=== PATIENT | male | born 1985 | race Two or more races ===

== ENCOUNTER 2019-01-24 01:47 | Emergency (ER) | payer OTHER ==
[2019-01-24] MEDS ORDERED: AMLODIPINE BESYLATE 10 MG TABLET PO ONE (04:06)
[2019-01-24] MEDS ORDERED: HYDROCHLOROTHIAZIDE 25 MG TABLET PO ONE (04:06)
[2019-01-24] MEDS ORDERED: LORAZEPAM INJ 2 MG/1 ML VIAL IV ONE (04:06)
[2019-01-24] MEDS ORDERED: LOSARTAN POTASSIUM 50 MG TABLET PO ONE (04:06)
[2019-01-24] MEDS ORDERED: METFORMIN HCL 500 MG TABLET PO ONE (04:07)
[2019-01-24] MEDS ORDERED: HYDRALAZINE HCL INJ/PF 20 MG/1 ML SDV IV ONE (04:07)
[2019-01-24 04:49] LABS: ABSOLUTE BASOPHILS # (AUTO) 0.1 10^3/uL (0.0-0.2); ABSOLUTE EOSINOPHILS # (AUTO) 0.2 10^3/uL (0.0-0.6); ABSOLUTE LYMPHOCYTES (AUTO) 3.1 10^3/uL (0.5-4.7); ABSOLUTE MONOCYTES (AUTO) 0.6 10^3/uL (0.1-1.4); ABSOLUTE NEUT (AUTO) 5.6 10^3/uL (1.7-8.2); BASOPHILS % (AUTO) 0.9 % (0-2); HEMATOCRIT 46.6 % (37.9-51.0); HEMOGLOBIN 15.7 g/dL (13.5-17.0); LYMPHOCYTES % (AUTO) 31.8 % (13-45); MEAN CORPUSCULAR HEMOGLOBIN 28.7 pg (27.0-33.4); MEAN CORPUSCULAR HGB CONC 33.7 g/dL (32.0-36.0); MEAN CORPUSCULAR VOLUME 85 fl (80-97); MONOCYTES % (AUTO) 6.7 % (3-13); PLATELET COUNT 377 10^3/uL (150-450); RED BLOOD COUNT 5.47 10^6/uL (4.35-5.55); RED CELL DISTRIBUTION WIDTH 13.6 % (11.5-14.0); SEGMENTED NEUTROPHILS % (AUTO) 58.6 % (42-78); TOTAL CELLS COUNTED % (AUTO) 100 %; WHITE BLOOD COUNT 9.6 10^3/uL (4.0-10.5)
[2019-01-24 05:03] LABS: ALBUMIN 4.3 g/dL (3.5-5.0); ALKALINE PHOSPHATASE 98 U/L (38-126); ANION GAP 14 (5-19); ASPARTATE AMINO TRANSFERASE 29 U/L (17-59); BILIRUBIN,DIRECT 0.2 mg/dL (0.0-0.4); BILIRUBIN,TOTAL 0.5 mg/dL (0.2-1.3); BLOOD UREA NITROGEN 14 mg/dL (7-20); CALCIUM 9.3 mg/dL (8.4-10.2); CARBON DIOXIDE 22 mmol/L (22-30); CHLORIDE 104 mmol/L (98-107); GLUCOSE 237 mg/dL (75-110); POTASSIUM 4.3 mmol/L (3.6-5.0); TOTAL PROTEIN 7.5 g/dL (6.3-8.2)
[2019-01-24 05:13] LABS: NT PRO BNP 25 pg/mL (<125)
[2019-01-24 05:15] LABS: TROPONIN I < 0.012 ng/mL
--- NOTE | 2019-01-24 05:18 | RADIOLOGY REPORT (SQ) ---
EXAM DESCRIPTION: XR CHEST 2 VIEWS COMPLETED DATE/TME: 01/24/2019 04:05 CLINICAL HISTORY: 33 years Male, dyspnea, hypertension COMPARISON: None. NUMBER OF VIEWS/TECHNIQUE: 2, Frontal, Lateral FINDINGS: Increased lung volume, clear parenchyma, normal cardiac silhouette, and intact bony thorax. IMPRESSION: No acute cardiopulmonary findings.
--- NOTE | 2019-01-24 06:03 | ER Document Report ---
ED General - General Chief Complaint: High Blood Pressure Stated Complaint: HIGH BLOOD PRESSURE/HEART FLUTTERING Time Seen by Provider: 01/24/19 03:51 Mode of Arrival: Ambulatory Information source: Patient, Friend TRAVEL OUTSIDE OF THE [place] IN LAST 30 DAYS: No - HPI Notes: Patient is a 33-year-old male history of hypertension and type 2 diabetes presen ts to the emergency department with report that he stopped taking his amlodipine and losartan and hydrochlorothiazide 2 months ago when he ran out. He also has not been taking his Humalog insulin and metformin for the last month. The patient states he has lost weight and has been trying to watch his diet and has been exercising better. The patient was driving up from [place] and stated he felt his heart rate going fast and felt somewhat anxious. The patient states he feels better after arrival. He denies having chest pain on my questioning. Patient reports no nausea or vomiting or significant dyspnea. No cough or congestion. No fever or chills or constipation or diarrhea or dysuria. The patient denies any illegal drug use. Patient drinks rarely. He works in construction. Patient reports that approximately 1 year ago he had a CT angiogram which showed no vascular calcifications or other disease. Patient denies any headache. He reports no numbness or paresthesia or significant vision changes. - Related Data Allergies/Adverse Reactions: No Known Allergies Allergy (Unverified 01/24/19 04:16) Home Medications: losartan- stopped one month ago after seeing recall Past Medical History - General Information source: Patient - Social History Smoking Status: Never Smoker Chew tobacco use (# tins/day): No Frequency of alcohol use: None Drug Abuse: None Lives with: Friend Family History: DM Patient has suicidal ideation: No Patient has homicidal ideation: No - Past Medical History Cardiac Medical History: Reports: Hx Hypertension Endocrine Medical History: Reports: Hx Diabetes Mellitus Type 2 Review of Systems - Review of Systems -: Yes All other systems reviewed and negative Physical Exam - Vital signs Vitals: Temp Pulse Resp BP Pulse Ox 97.9 F 84 16 189/132 H 99 01/24/19 02:03 01/24/19 02:03 01/24/19 02:03 01/24/19 02:03 01/24/19 02:03 - Notes Notes: PHYSICAL EXAMINATION: GENERAL: Well-appearing, well-nourished and in no acute distress. HEAD: Atraumatic, normocephalic. EYES: Pupils equal round and reactive to light, extraocular movements intact, sclera anicteric, conjunctiva are mildly injected bilaterally.. ENT: Nares patent, oropharynx clear without exudates. Moist mucous membranes. NECK: Normal range of motion, supple without lymphadenopathy LUNGS: Breath sounds clear to auscultation bilaterally and equal. No wheezes rales or rhonchi. HEART: Regular rate and rhythm without murmurs ABDOMEN: Soft, nontender, nondistended abdomen. No guarding, no rebound. No masses appreciated. Musculoskeletal: Normal range of motion, no pitting or edema. No cyanosis. NEUROLOGICAL: Cranial nerves grossly intact. Normal speech, normal gait. Normal sensory, motor exams. No cerebellar ataxia. PSYCH: Mildly anxious, normal affect. SKIN: Warm, Dry, normal turgor, no rashes or lesions noted. Course - Re-evaluation Re-evalutation: 01/24/19 05:55 Patient was given Ativan and hydralazine as well as the patient's regular doses of amlodipine, losartan, hydrochlorothiazide. Blood sugar was only mildly elevated, but did not require additional insulin. Patient was given his usual metformin dose. Patient was counseled at length about the need to follow-up with his regular practitioner and the need to be compliant with his medications. Given the only mild hyperglycemia noted, I will not restart his Humalog given that he has been watching his diet and has lost proximally 40 pounds. The patient was instructed to check and record his blood sugars and blood pressure at home to discuss with his regular doctor also. No evidence for ischemia or endorgan dysfunction or electrolyte imbalance or anemia or acute NE or CHF or pneumonia.. 01/24/19 06:04 Repeat blood pressure 152/89 prior to discharge. 01/24/19 06:12 - Vital Signs Vital signs: Temp Pulse Resp BP Pulse Ox 97.9 F 84 12 207/118 H 98 01/24/19 02:03 01/24/19 02:03 01/24/19 04:44 01/24/19 04:44 01/24/19 04:44 - Laboratory Result Diagrams: 01/24/19 04:20 01/24/19 04:20 Laboratory results interpreted by me: 10/24/19 10/24/19 03:54 04:20 Glucose 237 H POC Glucose 242 H Discharge - Discharge Clinical Impression: Hyperglycemia, Medical non-compliance Hypertension Qualifiers: Hypertension type: essential hypertension Qualified Code(s): I10 - Essential (primary) hypertension Condition: Stable Disposition: HOME, SELF-CARE Instructions: Diabetes ([facility]), High Blood Pressure, Requiring Treatment ([facility]), Hydrochlorothiazide ([facility]) Additional Instructions: Check and record your blood sugar and blood pressure regularly to discuss the values with your regular doctor. Prescriptions: Hydrochlorothiazide [Hydrodiuril 25 mg Tablet] 25 mg PO QAM #60 tablet Losartan Potassium 50 mg PO DAILY #60 tablet Metformin HCl 1,000 mg PO BID #120 tablet Amlodipine Besylate [Norvasc 10 mg Tablet] 10 mg PO DAILY #60 tablet
[2019-01-24 06:31] VITALS: BP 142/80
--- NOTE | 2019-01-24 20:19 | EKG REPORT ---
SEVERITY:- NORMAL ECG - SINUS RHYTHM : Confirmed by: Cristel Nieto MD 24-Jan-2019 20:18:23
== END 2019-01-24 06:31 | disposition home or self-care (01) ==
LOC: ER 01:47
DX: I10 Essential (primary) hypertension (principal); E11.65 Type 2 diabetes mellitus with hyperglycemia; T38.3X6A Underdosing of insulin and oral hypoglycemic [antidiabetic] drugs, initial encounter; Z91.128 Patient's intentional underdosing of medication regimen for other reason; Z91.14 Patient's other noncompliance with medication regimen
CPT/HCPCS: 36415; 82962; 83735; 84443; 85025; 80053; 84484; 83880; 71046; 93005; 93010; J0360; J2060; 96374; 96375; 99284